=== PATIENT | female | born 1985 | race Caucasian/White ===

== ENCOUNTER 2017-05-21 18:48 | Inpatient (IN) ==
[2017-05-21] MEDS ORDERED: ACETAMINOPHEN 325 MG TABLET PO ONE (19:29)
[2017-05-21 21:58] LABS: Basophils % 0.2 % (0.0-0.8); Hematocrit 29.9 VOL% (35.7-47.0); Hemoglobin 9.7 GM/DL (12.0-16.0); Immature Granulocytes % 0.7 %; Immature Granulocytes Absolute 0.09 #; Lymphocytes % 7.9 % (21.3-54.2); Mean Corpuscular HGB Conc 32.4 GM/DL (32-36); Mean Corpuscular Hemoglobin 26 PG (27-34); Mean Corpuscular Volume 79.3 FL (87-102); Mean Platelet Volume 10.8 FL (9.6-12.0); Monocytes # 1.3 10*3/uL (0.11-0.8); Neutrophils # 10.2 10*3/uL (1.4-7.4); Neutrophils % 81.2 % (38.7-73.9); Platelet Count 518 T/CUMM (130-400); Red Blood Count 3.77 MC/CUMM (3.8-5.5); Red Cell Distribution Width 15.9 % (9.3-17.3); White Blood Count 12.6 T/CUMM (4-12)
[2017-05-21] MEDS ORDERED: HYDROmorphone 2 MG/1 ML VIAL IV STA (22:01)
[2017-05-21] MEDS ORDERED: ALUM/MAG/SIMETH/LIDO VISC 1:1 30 ML BOTTLE PO STA (22:01)
[2017-05-21] MEDS ORDERED: SODIUM CHLORIDE 0.9% 1,000 ML IV STA (22:01)
[2017-05-21] MEDS ORDERED: PANTOPRAZOLE 40 MG VIAL IV STA (22:01)
[2017-05-21] MEDS ORDERED: ONDANSETRON 4 MG/2 ML VIAL IV STA (22:01)
[2017-05-21] MEDS ORDERED: ACETAMINOPHEN 500 MG TABLET PO STA (22:24)
[2017-05-21] MEDS ORDERED: PANTOPRAZOLE 40 MG VIAL IV ONE (22:26)
[2017-05-21] MEDS ORDERED: HYDROmorphone 2 MG/1 ML VIAL ONE (22:26)
[2017-05-21] MEDS ORDERED: ALUM/MAG/SIMETH/LIDO VISC 1:1 30 ML BOTTLE PO ONE (22:26)
[2017-05-21] MEDS ORDERED: ONDANSETRON 4 MG/2 ML VIAL ONE (22:26)
[2017-05-21] MEDS ORDERED: ACETAMINOPHEN 500 MG TABLET ONE (22:26)
[2017-05-21 22:28] LABS: INR 10.9; PT Patient Result 105.1 SECS
[2017-05-21 22:35] LABS: Alanine Aminotransferase 16 U/L (13-56); Alkaline Phosphatase 96 U/L (45-117); Amylase 44 U/L (25-115); Aspartate Amino Transferase 21 U/L (0-37); Blood Urea Nitrogen 6 MG/DL (7-18); Glucose 87 MG/DL (74-106); Osmolality,Calculated 273.5 MOS/KG (273-304); Potassium 3.4 MMOL/L (3.5-5.1); Sodium 139 MMOL/L (136-145); Total Protein 7.2 G/DL (6.4-8.3); Troponin I Only < 0.015 NG/ML (0.00-0.045)
[2017-05-21 22:36] LABS: Apearance,Urine CLOUDY (Clear); Bacteria,Urine Occasional /HPF (Few); Bilirubin,Urine Negative (Negative); Blood, Urine Large mg/dL (Negative); Glucose,Urine (UA) Negative (Negative); Hyaline Casts,Urine 1 /LPF (0-3); Ketones,Urine Negative (Negative); Mucus,Urine Occasional /LPF (Occasional); Nitrite,Urine Negative (Negative); Protein,Urine 30 MG/DL; RBC,Urine 1 /HPF (0-4); Squamous Epithelial Cell,Urine Moderate /HPF (0-10); Urine Color Yellow (Yellow); Urine Specific Gravity 1.024 (1.001-1.035); WBC,Urine 4 /HPF (0-6)
[2017-05-21 22:43] LABS: Lactic Acid 1.5 MMOL/L (0.4-2.0)
[2017-05-22] MEDS ORDERED: ONDANSETRON 4 MG/2 ML VIAL IV STA (01:00)
[2017-05-22] MEDS ORDERED: HYDROmorphone 2 MG/1 ML VIAL IV STA (01:00)
[2017-05-22] MEDS ORDERED: HYDROmorphone 2 MG/1 ML VIAL ONE (01:03)
[2017-05-22] MEDS ORDERED: ONDANSETRON 4 MG/2 ML VIAL ONE (01:03)
[2017-05-22] MEDS ORDERED: PIPERACILLIN/TAZOBACTAM 3,375 MG in SODIUM CHLORIDE 0.9% 100 ML IV STA (01:32)
[2017-05-22] MEDS ORDERED: PIPERACILLIN/TAZOBACTAM 3,375 MG VIAL IV ONE (01:38)
[2017-05-22] MEDS ORDERED: SODIUM CHLORIDE 0.9% 100 ML IV ONE (01:38)
[2017-05-22] MEDS ORDERED: PHYTONADIONE 5 MG TABLET PO ONE (01:58)
[2017-05-22] MEDS ORDERED: MAGNESIUM HYDROXIDE SUSP 30 ML UDCUP PO PRN (02:49)
[2017-05-22] MEDS ORDERED: BISACODYL 10 MG SUPP RECTAL ONE (02:49)
[2017-05-22] MEDS ORDERED: ALBUTEROL/IPRATROPIUM 3 ML NEB RESP TX PRN (02:49)
[2017-05-22] MEDS ORDERED: ACETAMINOPHEN 325 MG TABLET PO PRN ×2 (02:49→09:29)
[2017-05-22] MEDS ORDERED: LACTATED RINGERS 1,000 ML IV SCH (02:49)
[2017-05-22] MEDS: SODIUM CHLORIDE 0.9% 1,000 ML IV SCH (03:33)
[2017-05-22] MEDS: HYDROmorphone 2 MG/1 ML VIAL IV PRN ×4 (03:33→20:52)
[2017-05-22] MEDS: PIPERACILLIN/TAZOBACTAM 3,375 MG in SODIUM CHLORIDE 0.9% 100 ML IV SCH ×3 (04:36→17:12)
[2017-05-22 06:45] LABS: Basophils % 0.2 % (0.0-0.8); Hematocrit 25.2 VOL% (35.7-47.0); Hemoglobin 8.1 GM/DL (12.0-16.0); Immature Granulocytes % 0.6 %; Immature Granulocytes Absolute 0.06 #; Lymphocytes % 10.7 % (21.3-54.2); Mean Corpuscular HGB Conc 32.1 GM/DL (32-36); Mean Corpuscular Hemoglobin 25 PG (27-34); Mean Platelet Volume 11.3 FL (9.6-12.0); Monocytes # 1.2 10*3/uL (0.11-0.8); Monocytes % 12.3 % (1.7-12.7); Neutrophils # 7.2 10*3/uL (1.4-7.4); Neutrophils % 76.2 % (38.7-73.9); Platelet Count 452 T/CUMM (130-400); Red Blood Count 3.19 MC/CUMM (3.8-5.5); White Blood Count 9.4 T/CUMM (4-12)
[2017-05-22 07:14] LABS: PT Patient Result 95.9 SECS
[2017-05-22 07:16] LABS: INR 9.9
[2017-05-22 07:29] LABS: Albumin 2.5 G/DL (3.4-5.0); Bilirubin,Total 0.5 MG/DL (0.2-1.0); Calcium 7.6 MG/DL (8.5-10.1); Osmolality,Calculated 274.4 MOS/KG (273-304); Potassium 3.3 MMOL/L (3.5-5.1); Total Protein 6.1 G/DL (6.4-8.3)
[2017-05-22] MEDS: ONDANSETRON 4 MG/2 ML VIAL IV PRN ×2 (07:52→13:32)
[2017-05-22] MEDS ORDERED: CETIRIZINE HCL 10 MG PO SCH (09:00)
[2017-05-22] MEDS ORDERED: DOCUSATE SODIUM 100 MG CAPSULE PO SCH (09:00)
[2017-05-22] MEDS ORDERED: PANTOPRAZOLE 40 MG VIAL IV SCH (09:00)
[2017-05-22] MEDS ORDERED: AZATHIOPRINE 50 MG PO SCH (09:00)
[2017-05-22] MEDS: IBUPROFEN 800 MG TABLET PO PRN (09:20)
[2017-05-22] MEDS ORDERED: SODIUM CHLORIDE 0.9% 1,000 ML IV PRN (09:26)
[2017-05-22] MEDS: CETIRIZINE 10 MG TABLET PO SCH (11:22)
[2017-05-22] MEDS: levETIRAcetam 500 MG TABLET PO SCH ×2 (11:22→20:50)
[2017-05-22] MEDS: VERAPAMIL 120 MG TABLET PO SCH (11:22)
[2017-05-22] MEDS: cloNIDine 0.1 MG TABLET PO SCH ×3 (11:22→20:49)
[2017-05-22] MEDS: predniSONE 20 MG TABLET PO SCH (11:22)
[2017-05-22] MEDS: METOPROLOL SUCCINATE XL 100 MG TABLET PO SCH ×2 (11:23→20:50)
[2017-05-22] MEDS: azaTHIOprine 50 MG TABLET PO SCH ×2 (11:23→20:50)
[2017-05-22] MEDS: DOCUSATE SODIUM 100 MG CAPSULE PO SCH ×2 (11:23→20:50)
[2017-05-22] MEDS: DULoxetine 30 MG CAPSULE PO SCH (11:23)
[2017-05-22] MEDS: PANTOPRAZOLE 40 MG TABLET PO SCH (11:23)
[2017-05-22] MEDS: PROMETHAZINE 25 MG/1 ML VIAL IM PRN ×2 (13:57→20:56)
[2017-05-22] MEDS ORDERED: POTASSIUM CHLORIDE 20 MEQ TABLET PO ONE (14:47)
[2017-05-22 16:20] LABS: Basophils % 0.1 % (0.0-0.8); Hematocrit 25.7 VOL% (35.7-47.0); Hemoglobin 8.3 GM/DL (12.0-16.0); Immature Granulocytes % 0.8 %; Immature Granulocytes Absolute 0.12 #; Lymphocytes # 0.4 10*3/uL (1.4-4.0); Lymphocytes % 2.8 % (21.3-54.2); Mean Corpuscular HGB Conc 32.3 GM/DL (32-36); Mean Corpuscular Hemoglobin 26 PG (27-34); Mean Corpuscular Volume 79.3 FL (87-102); Monocytes # 0.7 10*3/uL (0.11-0.8); Monocytes % 4.7 % (1.7-12.7); Neutrophils # 13.7 10*3/uL (1.4-7.4); Neutrophils % 91.6 % (38.7-73.9); Platelet Count 438 T/CUMM (130-400); Red Blood Count 3.24 MC/CUMM (3.8-5.5); Red Cell Distribution Width 15.9 % (9.3-17.3); White Blood Count 14.9 T/CUMM (4-12)
[2017-05-22 16:41] LABS: INR 2.1
[2017-05-22 16:48] LABS: PT Patient Result 21.5 SECS
[2017-05-22 17:30] LABS: Lymphocytes 3 % (20-55); Segmented Neutrophils 97 % (50-85); Total Cells Counted 100
[2017-05-22 17:31] LABS: Hypochromasia Slight; Platelet Estimate Adequate; Polychromasia Few
[2017-05-22] MEDS: ZALEPLON 5 MG CAPSULE PO SCH (20:50)
[2017-05-23] MEDS: SODIUM CHLORIDE 0.9% 1,000 ML IV SCH ×3 (00:41→16:31)
[2017-05-23] MEDS: HYDROmorphone 2 MG/1 ML VIAL IV PRN ×4 (00:42→21:08)
[2017-05-23] MEDS: PROMETHAZINE 25 MG/1 ML VIAL IM PRN (00:42)
[2017-05-23] MEDS: PIPERACILLIN/TAZOBACTAM 3,375 MG in SODIUM CHLORIDE 0.9% 100 ML IV SCH ×3 (00:48→19:28)
[2017-05-23] MEDS: IBUPROFEN 800 MG TABLET PO PRN (03:12)
[2017-05-23 06:25] LABS: Basophils % 0.2 % (0.0-0.8); Hematocrit 23.2 VOL% (35.7-47.0); Hemoglobin 7.5 GM/DL (12.0-16.0); Immature Granulocytes % 0.7 %; Immature Granulocytes Absolute 0.09 #; Lymphocytes % 7.9 % (21.3-54.2); Mean Corpuscular HGB Conc 32.3 GM/DL (32-36); Mean Corpuscular Hemoglobin 26 PG (27-34); Mean Corpuscular Volume 78.9 FL (87-102); Mean Platelet Volume 10.5 FL (9.6-12.0); Monocytes # 1.2 10*3/uL (0.11-0.8); Monocytes % 9.2 % (1.7-12.7); Neutrophils # 10.8 10*3/uL (1.4-7.4); Platelet Count 398 T/CUMM (130-400); Red Blood Count 2.94 MC/CUMM (3.8-5.5); Red Cell Distribution Width 15.9 % (9.3-17.3); White Blood Count 13.1 T/CUMM (4-12)
[2017-05-23 06:36] LABS: INR 2.1
[2017-05-23 06:50] LABS: PT Patient Result 21.9 SECS
[2017-05-23] MEDS ORDERED: SODIUM CHLORIDE 0.9% 1,000 ML IV PRN (08:45)
[2017-05-23] MEDS ORDERED: PHYTONADIONE 5 MG TABLET PO ONE ×2 (09:28→10:48)
[2017-05-23] MEDS: CETIRIZINE 10 MG TABLET PO SCH (10:55)
[2017-05-23] MEDS: DOCUSATE SODIUM 100 MG CAPSULE PO SCH ×2 (10:55→21:12)
[2017-05-23] MEDS: VERAPAMIL 120 MG TABLET PO SCH (10:55)
[2017-05-23] MEDS: cloNIDine 0.1 MG TABLET PO SCH ×3 (10:55→21:13)
[2017-05-23] MEDS: azaTHIOprine 50 MG TABLET PO SCH ×2 (10:55→21:12)
[2017-05-23] MEDS: levETIRAcetam 500 MG TABLET PO SCH ×2 (10:55→21:12)
[2017-05-23] MEDS: predniSONE 20 MG TABLET PO SCH (10:55)
[2017-05-23] MEDS: DULoxetine 30 MG CAPSULE PO SCH (10:56)
[2017-05-23] MEDS: METOPROLOL SUCCINATE XL 100 MG TABLET PO SCH ×2 (10:56→21:12)
[2017-05-23] MEDS: PANTOPRAZOLE 40 MG TABLET PO SCH (10:56)
[2017-05-23] MEDS ORDERED: MAGNESIUM CITRATE 300 ML BOTTLE PO ONE (18:00)
[2017-05-23 19:55] LABS: Hematocrit 31.4 VOL% (35.7-47.0)
[2017-05-23 19:59] LABS: Hemoglobin 10.1 GM/DL (12.0-16.0)
[2017-05-23] MEDS: ZALEPLON 5 MG CAPSULE PO SCH (21:12)
[2017-05-23] MEDS: ALVIMOPAN 12 MG CAPSULE PO SCH (21:12)
[2017-05-23] MEDS: POTASSIUM CHLORIDE 20 MEQ TABLET PO SCH (21:16)
[2017-05-24] MEDS: HYDROmorphone 2 MG/1 ML VIAL IV PRN ×7 (00:11→21:50)
[2017-05-24] MEDS: PROMETHAZINE 25 MG/1 ML VIAL IM PRN (01:01)
[2017-05-24] MEDS: SODIUM CHLORIDE 0.9% 1,000 ML IV SCH ×2 (01:06→21:02)
[2017-05-24] MEDS: PIPERACILLIN/TAZOBACTAM 3,375 MG in SODIUM CHLORIDE 0.9% 100 ML IV SCH ×3 (03:14→22:40)
[2017-05-24 07:18] LABS: Basophils % 0.2 % (0.0-0.8); Eosinophils % 0.1 % (0.00-10.9); Hematocrit 30.3 VOL% (35.7-47.0); Immature Granulocytes % 1.4 %; Lymphocytes # 1.2 10*3/uL (1.4-4.0); Lymphocytes % 8.4 % (21.3-54.2); Mean Corpuscular Hemoglobin 26 PG (27-34); Mean Corpuscular Volume 79.7 FL (87-102); Mean Platelet Volume 10.7 FL (9.6-12.0); Monocytes # 1.1 10*3/uL (0.11-0.8); Monocytes % 7.6 % (1.7-12.7); NRBC # 0.03 10*3/uL; Neutrophils # 12.2 10*3/uL (1.4-7.4); Neutrophils % 82.3 % (38.7-73.9); Platelet Count 477 T/CUMM (130-400); Red Cell Distribution Width 16.2 % (9.3-17.3); White Blood Count 14.8 T/CUMM (4-12)
[2017-05-24 07:24] LABS: INR 1.3; PT Patient Result 13.4 SECS
[2017-05-24 07:25] LABS: INR 1.3; PT Patient Result 13.3 SECS
[2017-05-24 07:31] LABS: Partial Thromboplastin Time 40.5 SECS (0-40)
[2017-05-24 07:56] LABS: Albumin 2.8 G/DL (3.4-5.0); Bilirubin,Total 0.8 MG/DL (0.2-1.0); Calcium 8.2 MG/DL (8.5-10.1); Potassium 3.6 MMOL/L (3.5-5.1); Total Protein 7.1 G/DL (6.4-8.3)
[2017-05-24] MEDS: levETIRAcetam 500 MG TABLET PO SCH ×2 (08:50→21:00)
[2017-05-24] MEDS: cloNIDine 0.1 MG TABLET PO SCH ×3 (08:50→21:00)
[2017-05-24] MEDS ORDERED: PANTOPRAZOLE 40 MG TABLET PO ONE (08:50)
[2017-05-24] MEDS: VERAPAMIL 120 MG TABLET PO SCH (08:50)
[2017-05-24] MEDS: PANTOPRAZOLE 40 MG TABLET PO SCH (08:51)
[2017-05-24] MEDS: METOPROLOL SUCCINATE XL 100 MG TABLET PO SCH ×2 (08:51→21:00)
[2017-05-24] MEDS ORDERED: HEPARIN 5,000 UNIT/1 ML VIAL SUBCUT ONE (10:21)
[2017-05-24] MEDS: predniSONE 20 MG TABLET PO SCH (10:42)
[2017-05-24] MEDS: CETIRIZINE 10 MG TABLET PO SCH (10:42)
[2017-05-24] MEDS: POTASSIUM CHLORIDE 20 MEQ TABLET PO SCH ×2 (10:42→21:00)
[2017-05-24] MEDS: DULoxetine 30 MG CAPSULE PO SCH (10:43)
[2017-05-24] MEDS: DOCUSATE SODIUM 100 MG CAPSULE PO SCH ×2 (10:43→21:00)
[2017-05-24] MEDS: ALVIMOPAN 12 MG CAPSULE PO SCH ×2 (10:43→21:00)
[2017-05-24] MEDS: azaTHIOprine 50 MG TABLET PO SCH ×2 (10:43→21:00)
[2017-05-24] MEDS ORDERED: HEPARIN 5,000 UNIT/1 ML VIAL ONE (12:36)
[2017-05-24] MEDS ORDERED: TISSUE ADHESIVE 1 EACH APPLICATOR TOP ONE (12:51)
[2017-05-24] MEDS: LACTATED RINGERS 1,000 ML IV SCH ×3 (13:25→21:07)
[2017-05-24] MEDS ORDERED: FLUORESCEIN 500 MG/5 ML VIAL IV ONE (16:48)
[2017-05-24 17:55] LABS: Apearance,Urine CLEAR (Clear); Bilirubin,Urine Negative (Negative); Blood, Urine Negative (Negative); Glucose,Urine (UA) Negative (Negative); Ketones,Urine Negative (Negative); Nitrite,Urine Negative (Negative); Protein,Urine Negative; Urine Color Straw (Yellow); Urine Specific Gravity 1.006 (1.001-1.035); Urine Urobilinogen < 2.0 EU/DL (0.2-1.0)
[2017-05-24] MEDS ORDERED: ONDANSETRON 4 MG/2 ML VIAL IV PRN (18:04)
[2017-05-24] MEDS ORDERED: LABETALOL 20 MG/4 ML SYRINGE IV ONE ×2 (18:43→18:50)
[2017-05-24] MEDS ORDERED: hydrALAZINE 20 MG/1 ML VIAL ONE (19:08)
[2017-05-24] MEDS ORDERED: hydrALAZINE 20 MG/1 ML VIAL IV ONE ×2 (19:11→19:34)
[2017-05-24] MEDS ORDERED: PROPOFOL 200 MG/20 ML VIAL IV ONE (20:05)
[2017-05-24] MEDS ORDERED: HYDROmorphone 2 MG/1 ML VIAL ONE (20:05)
[2017-05-24] MEDS ORDERED: SEVOFLURANE 1 UNIT/15 MINUTE INH ONE (20:05)
[2017-05-24] MEDS ORDERED: KETOROLAC 30 MG/1 ML VIAL ONE (20:06)
[2017-05-24] MEDS ORDERED: ONDANSETRON 4 MG/2 ML VIAL ONE (20:06)
[2017-05-24] MEDS ORDERED: GLYCOPYRROLATE 0.4 MG/2 ML VIAL ONE (20:06)
[2017-05-24] MEDS ORDERED: fentaNYL 100 MCG/2 ML VIAL ONE (20:06)
[2017-05-24] MEDS ORDERED: MIDAZOLAM 2 MG/2 ML VIAL ONE (20:06)
[2017-05-24] MEDS ORDERED: methylPREDNISolone SOD SUC 125 MG/2 ML VIAL ONE (20:06)
[2017-05-24] MEDS ORDERED: ACETAMINOPHEN 1,000 MG/100 ML VIAL IV ONE (20:06)
[2017-05-24] MEDS ORDERED: ROCURONIUM 100 MG/10 ML VIAL IV ONE (20:07)
[2017-05-24] MEDS: MEPERIDINE 50 MG/1 ML VIAL IM PRN (20:54)
[2017-05-24 21:48] LABS: Basophils % 0.1 % (0.0-0.8); Hematocrit 30.2 VOL% (35.7-47.0); Immature Granulocytes % 1.1 %; Immature Granulocytes Absolute 0.19 #; Lymphocytes # 0.4 10*3/uL (1.4-4.0); Lymphocytes % 2.6 % (21.3-54.2); Mean Corpuscular HGB Conc 33.1 GM/DL (32-36); Mean Corpuscular Hemoglobin 26 PG (27-34); Mean Corpuscular Volume 79.7 FL (87-102); Mean Platelet Volume 10.6 FL (9.6-12.0); Monocytes # 0.7 10*3/uL (0.11-0.8); Monocytes % 3.9 % (1.7-12.7); Neutrophils # 15.5 10*3/uL (1.4-7.4); Neutrophils % 92.3 % (38.7-73.9); Platelet Count 523 T/CUMM (130-400); Red Blood Count 3.79 MC/CUMM (3.8-5.5); Red Cell Distribution Width 16.6 % (9.3-17.3); White Blood Count 16.8 T/CUMM (4-12)
[2017-05-24 22:11] LABS: Lymphocytes 2 % (20-55); Platelet Estimate Increased; Segmented Neutrophils 95 % (50-85); Total Cells Counted 100
[2017-05-24] MEDS: ZALEPLON 5 MG CAPSULE PO SCH (22:43)
[2017-05-25] MEDS: MEPERIDINE 50 MG/1 ML VIAL IM PRN ×3 (01:09→09:28)
[2017-05-25] MEDS: PROMETHAZINE 25 MG/1 ML VIAL IM PRN ×2 (01:10→05:28)
[2017-05-25] MEDS ORDERED: ENOXAPARIN 40 MG/0.4 ML SYRINGE SUBCUT SCH (05:00)
[2017-05-25] MEDS: SODIUM CHLORIDE 0.9% 1,000 ML IV SCH ×3 (05:25→21:21)
[2017-05-25 05:45] LABS: Calcium 7.9 MG/DL (8.5-10.1); Osmolality,Calculated 275.4 MOS/KG (273-304); Potassium 3.9 MMOL/L (3.5-5.1)
[2017-05-25] MEDS: levETIRAcetam 500 MG TABLET PO SCH ×2 (09:20→21:24)
[2017-05-25] MEDS: POTASSIUM CHLORIDE 20 MEQ TABLET PO SCH ×2 (09:20→21:22)
[2017-05-25] MEDS: VERAPAMIL 120 MG TABLET PO SCH (09:20)
[2017-05-25] MEDS: CETIRIZINE 10 MG TABLET PO SCH (09:20)
[2017-05-25] MEDS: PANTOPRAZOLE 40 MG TABLET PO SCH (09:20)
[2017-05-25] MEDS: METOPROLOL SUCCINATE XL 100 MG TABLET PO SCH ×2 (09:20→21:22)
[2017-05-25] MEDS: DOCUSATE SODIUM 100 MG CAPSULE PO SCH ×2 (09:20→21:23)
[2017-05-25] MEDS: ALVIMOPAN 12 MG CAPSULE PO SCH ×2 (09:20→21:23)
[2017-05-25] MEDS: predniSONE 20 MG TABLET PO SCH (09:20)
[2017-05-25] MEDS: cloNIDine 0.1 MG TABLET PO SCH ×3 (09:20→21:22)
[2017-05-25] MEDS: azaTHIOprine 50 MG TABLET PO SCH ×2 (09:20→21:23)
[2017-05-25] MEDS: DULoxetine 30 MG CAPSULE PO SCH (09:21)
[2017-05-25] MEDS: HYDROmorphone 2 MG/1 ML VIAL IV PRN (09:39)
[2017-05-25] MEDS: PIPERACILLIN/TAZOBACTAM 3,375 MG in SODIUM CHLORIDE 0.9% 100 ML IV SCH ×2 (10:16→19:10)
[2017-05-25] MEDS: ENOXAPARIN 30 MG/0.3 ML SYRINGE SUBCUT SCH (12:49)
[2017-05-25 12:51] LABS: PT Patient Result 10.7 SECS
[2017-05-25 17:37] LABS: Apearance,Urine CLOUDY (Clear); Bilirubin,Urine Negative (Negative); Blood, Urine Negative (Negative); Glucose,Urine (UA) Negative (Negative); Ketones,Urine Negative (Negative); Nitrite,Urine Negative (Negative); Protein,Urine Negative; RBC,Urine 1 /HPF (0-4); Squamous Epithelial Cell,Urine Occasional /HPF (0-10); Urine Specific Gravity 1.008 (1.001-1.035); Urine Urobilinogen < 2.0 EU/DL (0.2-1.0); WBC,Urine 2 /HPF (0-6)
[2017-05-25 17:38] LABS: Urine Color Yellow (Yellow)
[2017-05-25] MEDS: VANCOMYCIN INJ 1,500 MG in SODIUM CHLORIDE 0.9% 500 ML IV SCH (19:10)
[2017-05-25] MEDS: WARFARIN 7.5 MG TABLET PO SCH (19:10)
[2017-05-25] MEDS: ZALEPLON 5 MG CAPSULE PO SCH (21:22)
[2017-05-25] MEDS: oxyCODONE/ACETAMINOPHEN 5-325 MG TABLET PO PRN (21:23)
[2017-05-26] MEDS: oxyCODONE/ACETAMINOPHEN 5-325 MG TABLET PO PRN ×2 (02:07→20:41)
[2017-05-26] MEDS: ENOXAPARIN 30 MG/0.3 ML SYRINGE SUBCUT SCH ×3 (02:07→23:43)
[2017-05-26] MEDS: PIPERACILLIN/TAZOBACTAM 3,375 MG in SODIUM CHLORIDE 0.9% 100 ML IV SCH ×3 (05:11→20:38)
[2017-05-26 05:18] LABS: Calcium 7.7 MG/DL (8.5-10.1)
[2017-05-26 05:19] LABS: Osmolality,Calculated 279.1 MOS/KG (273-304); Potassium 3.8 MMOL/L (3.5-5.1)
[2017-05-26] MEDS: cloNIDine 0.1 MG TABLET PO SCH ×3 (09:30→20:40)
[2017-05-26] MEDS: POTASSIUM CHLORIDE 20 MEQ TABLET PO SCH ×2 (09:30→20:40)
[2017-05-26] MEDS: ALVIMOPAN 12 MG CAPSULE PO SCH ×2 (09:30→20:40)
[2017-05-26] MEDS: levETIRAcetam 500 MG TABLET PO SCH ×2 (09:30→20:42)
[2017-05-26] MEDS: VERAPAMIL 120 MG TABLET PO SCH (09:30)
[2017-05-26] MEDS: predniSONE 20 MG TABLET PO SCH (09:30)
[2017-05-26] MEDS: DULoxetine 30 MG CAPSULE PO SCH ×2 (09:30→09:32)
[2017-05-26] MEDS: PANTOPRAZOLE 40 MG TABLET PO SCH (09:30)
[2017-05-26] MEDS: CETIRIZINE 10 MG TABLET PO SCH (09:30)
[2017-05-26] MEDS: azaTHIOprine 50 MG TABLET PO SCH ×2 (09:30→20:43)
[2017-05-26] MEDS: METOPROLOL SUCCINATE XL 100 MG TABLET PO SCH ×2 (09:30→20:41)
[2017-05-26] MEDS: DOCUSATE SODIUM 100 MG CAPSULE PO SCH ×2 (09:30→20:42)
[2017-05-26] MEDS: VANCOMYCIN INJ 1,500 MG in SODIUM CHLORIDE 0.9% 500 ML IV SCH (09:30)
[2017-05-26 13:31] LABS: Basophils % 0.3 % (0.0-0.8); Eosinophils % 0.1 % (0.00-10.9); Hematocrit 28.6 VOL% (35.7-47.0); Hemoglobin 9.3 GM/DL (12.0-16.0); Immature Granulocytes % 3.1 %; Immature Granulocytes Absolute 0.33 #; Lymphocytes % 9.1 % (21.3-54.2); Mean Corpuscular HGB Conc 32.5 GM/DL (32-36); Mean Corpuscular Hemoglobin 27 PG (27-34); Mean Corpuscular Volume 81.7 FL (87-102); Mean Platelet Volume 10.8 FL (9.6-12.0); Monocytes # 0.8 10*3/uL (0.11-0.8); Monocytes % 7.9 % (1.7-12.7); NRBC # 0.04 10*3/uL; Neutrophils # 8.3 10*3/uL (1.4-7.4); Neutrophils % 79.5 % (38.7-73.9); Platelet Count 542 T/CUMM (130-400); Red Cell Distribution Width 16.9 % (9.3-17.3); White Blood Count 10.5 T/CUMM (4-12)
[2017-05-26] MEDS: hydrALAZINE 25 MG TABLET PO SCH ×2 (13:32→20:40)
[2017-05-26 13:41] LABS: INR 0.9
[2017-05-26] MEDS: WARFARIN 7.5 MG TABLET PO SCH (17:39)
[2017-05-26] MEDS: ZALEPLON 5 MG CAPSULE PO SCH (20:39)
[2017-05-26] MEDS: SODIUM CHLORIDE 0.9% 1,000 ML IV SCH (22:22)
[2017-05-27] MEDS: VANCOMYCIN INJ 1,500 MG in SODIUM CHLORIDE 0.9% 500 ML IV SCH ×2 (00:57→09:02)
[2017-05-27 02:33] LABS: Calcium 8.1 MG/DL (8.5-10.1); Osmolality,Calculated 278.3 MOS/KG (273-304); Potassium 3.9 MMOL/L (3.5-5.1)
[2017-05-27] MEDS: oxyCODONE/ACETAMINOPHEN 5-325 MG TABLET PO PRN ×3 (03:34→21:05)
[2017-05-27] MEDS: PIPERACILLIN/TAZOBACTAM 3,375 MG in SODIUM CHLORIDE 0.9% 100 ML IV SCH (03:35)
[2017-05-27] MEDS: predniSONE 20 MG TABLET PO SCH (09:03)
[2017-05-27] MEDS: hydrALAZINE 25 MG TABLET PO SCH ×2 (09:03→21:06)
[2017-05-27] MEDS: cloNIDine 0.1 MG TABLET PO SCH ×3 (09:04→21:06)
[2017-05-27] MEDS: DULoxetine 30 MG CAPSULE PO SCH (09:04)
[2017-05-27] MEDS: METOPROLOL SUCCINATE XL 100 MG TABLET PO SCH ×2 (09:04→21:05)
[2017-05-27] MEDS: ALVIMOPAN 12 MG CAPSULE PO SCH ×2 (09:04→21:05)
[2017-05-27] MEDS: VERAPAMIL 120 MG TABLET PO SCH (09:04)
[2017-05-27] MEDS: azaTHIOprine 50 MG TABLET PO SCH ×2 (09:04→21:05)
[2017-05-27] MEDS: CETIRIZINE 10 MG TABLET PO SCH (09:04)
[2017-05-27] MEDS: DOCUSATE SODIUM 100 MG CAPSULE PO SCH ×2 (09:04→21:07)
[2017-05-27] MEDS: PANTOPRAZOLE 40 MG TABLET PO SCH (09:04)
[2017-05-27] MEDS: levETIRAcetam 500 MG TABLET PO SCH ×2 (09:04→21:06)
[2017-05-27] MEDS: POTASSIUM CHLORIDE 20 MEQ TABLET PO SCH ×2 (09:04→21:06)
[2017-05-27] MEDS: ENOXAPARIN 30 MG/0.3 ML SYRINGE SUBCUT SCH ×2 (11:57→23:12)
[2017-05-27] MEDS: SODIUM CHLORIDE 0.9% 1,000 ML IV SCH (15:54)
[2017-05-27] MEDS: WARFARIN 7.5 MG TABLET PO SCH (17:02)
[2017-05-27] MEDS: ZALEPLON 5 MG CAPSULE PO SCH (21:05)
[2017-05-28] MEDS: oxyCODONE/ACETAMINOPHEN 5-325 MG TABLET PO PRN (05:20)
[2017-05-28] MEDS: hydrALAZINE 20 MG/1 ML VIAL IV PRN ×2 (05:20→11:11)
[2017-05-28 07:07] LABS: Basophils % 0.4 % (0.0-0.8); Eosinophils % 0.2 % (0.00-10.9); Hematocrit 31.5 VOL% (35.7-47.0); Immature Granulocytes % 5.5 %; Immature Granulocytes Absolute 0.59 #; Lymphocytes # 1.6 10*3/uL (1.4-4.0); Lymphocytes % 14.9 % (21.3-54.2); Mean Corpuscular HGB Conc 31.7 GM/DL (32-36); Mean Corpuscular Hemoglobin 26 PG (27-34); Mean Corpuscular Volume 82.9 FL (87-102); Mean Platelet Volume 10.7 FL (9.6-12.0); Monocytes # 0.8 10*3/uL (0.11-0.8); Monocytes % 7.7 % (1.7-12.7); NRBC # 0.07 10*3/uL; Neutrophils # 7.7 10*3/uL (1.4-7.4); Neutrophils % 71.3 % (38.7-73.9); Platelet Count 698 T/CUMM (130-400); Red Cell Distribution Width 17.1 % (9.3-17.3); White Blood Count 10.8 T/CUMM (4-12)
[2017-05-28 07:20] LABS: INR 1.3; PT Patient Result 13.5 SECS
[2017-05-28 07:40] LABS: Calcium 8.8 MG/DL (8.5-10.1); Osmolality,Calculated 277.3 MOS/KG (273-304); Potassium 3.5 MMOL/L (3.5-5.1)
[2017-05-28 07:43] LABS: Hypochromasia 1+; Lymphocytes 16 % (20-55); Microcytosis 1+; Myelocytes 1 %; Segmented Neutrophils 75 % (50-85); Total Cells Counted 100
[2017-05-28 07:44] LABS: Platelet Estimate Increased
[2017-05-28] MEDS: POTASSIUM CHLORIDE 20 MEQ TABLET PO SCH (09:19)
[2017-05-28] MEDS: levETIRAcetam 500 MG TABLET PO SCH (09:19)
[2017-05-28] MEDS: cloNIDine 0.1 MG TABLET PO SCH ×2 (09:19→14:23)
[2017-05-28] MEDS: predniSONE 20 MG TABLET PO SCH (09:19)
[2017-05-28] MEDS: CETIRIZINE 10 MG TABLET PO SCH (09:19)
[2017-05-28] MEDS: DULoxetine 30 MG CAPSULE PO SCH (09:20)
[2017-05-28] MEDS: VERAPAMIL 120 MG TABLET PO SCH (09:20)
[2017-05-28] MEDS: METOPROLOL SUCCINATE XL 100 MG TABLET PO SCH (09:20)
[2017-05-28] MEDS: azaTHIOprine 50 MG TABLET PO SCH (09:20)
[2017-05-28] MEDS: DOCUSATE SODIUM 100 MG CAPSULE PO SCH (09:20)
[2017-05-28] MEDS: hydrALAZINE 25 MG TABLET PO SCH (09:20)
[2017-05-28] MEDS: ALVIMOPAN 12 MG CAPSULE PO SCH (09:20)
[2017-05-28] MEDS: PANTOPRAZOLE 40 MG TABLET PO SCH (09:20)
[2017-05-28] MEDS: SODIUM CHLORIDE 0.9% 1,000 ML IV SCH (10:10)
[2017-05-28] MEDS: ENOXAPARIN 30 MG/0.3 ML SYRINGE SUBCUT SCH (11:12)
[2017-05-28 12:05] VITALS: BP 143/82
== END 2017-05-28 17:08 | disposition home or self-care (01) | DRG 982 ==
LOC: N.ED 18:48 → N.EDINP 05-22 01:58 → N.5E 05-22 02:45
PROVIDERS: ADMIT Obstetrics & Gynecology; ATTEND Obstetrics & Gynecology

== ENCOUNTER 2017-06-12 12:43 | Inpatient (IN) ==
[2017-06-12 16:44] LABS: Basophils % 0.4 % (0.0-0.8); Eosinophils % 0.1 % (0.00-10.9); Immature Granulocytes % 1.8 %; Immature Granulocytes Absolute 0.19 #; Lymphocytes # 2.1 10*3/uL (1.4-4.0); Lymphocytes % 19.7 % (21.3-54.2); Mean Corpuscular Hemoglobin 26 PG (27-34); Mean Corpuscular Volume 83.6 FL (87-102); Mean Platelet Volume 11.5 FL (9.6-12.0); Monocytes % 8.9 % (1.7-12.7); Neutrophils # 7.4 10*3/uL (1.4-7.4); Neutrophils % 69.1 % (38.7-73.9); Platelet Count 402 T/CUMM (130-400); Red Blood Count 3.47 MC/CUMM (3.8-5.5); Red Cell Distribution Width 17.2 % (9.3-17.3); White Blood Count 10.7 T/CUMM (4-12)
[2017-06-12 17:07] LABS: PT Patient Result 60.7 SECS; Partial Thromboplastin Time 63.7 SECS (0-40)
[2017-06-12 17:09] LABS: INR 6.1
[2017-06-12] MEDS ORDERED: ONDANSETRON 4 MG/2 ML VIAL IV PRN (17:35)
[2017-06-12] MEDS ORDERED: SODIUM CHLORIDE 0.9% 1,000 ML IV PRN (17:53)
[2017-06-12 17:56] LABS: Alanine Aminotransferase 38 U/L (13-56); Albumin 3.5 G/DL (3.4-5.0); Alkaline Phosphatase 142 U/L (45-117); Aspartate Amino Transferase 24 U/L (0-37); Bilirubin,Total < 0.39 MG/DL (0.2-1.0); Blood Urea Nitrogen 18 MG/DL (7-18); Calcium 8.6 MG/DL (8.5-10.1); Glucose 97 MG/DL (74-106); Osmolality,Calculated 278.5 MOS/KG (273-304); Potassium 3.5 MMOL/L (3.5-5.1); Sodium 139 MMOL/L (136-145); Total Protein 7.5 G/DL (6.4-8.3)
[2017-06-12] MEDS: oxyCODONE/ACETAMINOPHEN 5-325 MG TABLET PO PRN (22:10)
[2017-06-12] MEDS: levETIRAcetam 500 MG TABLET PO SCH (22:16)
[2017-06-12] MEDS: METOPROLOL SUCCINATE XL 100 MG TABLET PO SCH (22:17)
[2017-06-12] MEDS: azaTHIOprine 50 MG TABLET PO SCH (22:17)
[2017-06-12] MEDS: DOCUSATE SODIUM 100 MG CAPSULE PO SCH (22:17)
[2017-06-12] MEDS: ZALEPLON 5 MG CAPSULE PO SCH (22:17)
[2017-06-12] MEDS: cloNIDine 0.1 MG TABLET PO SCH (22:17)
[2017-06-12] MEDS: ALVIMOPAN 12 MG CAPSULE PO SCH (22:18)
[2017-06-13 01:30] LABS: Hematocrit 24.4 VOL% (35.7-47.0); Hemoglobin 7.8 GM/DL (12.0-16.0)
[2017-06-13 01:49] LABS: INR 2.8
[2017-06-13 01:56] LABS: Osmolality,Calculated 281.7 MOS/KG (273-304)
[2017-06-13 02:00] LABS: PT Patient Result 28.6 SECS
[2017-06-13 06:32] LABS: Hematocrit 20.1 VOL% (35.7-47.0)
[2017-06-13 07:36] LABS: Hemoglobin 6.5 GM/DL (12.0-16.0)
[2017-06-13] MEDS: VERAPAMIL 120 MG TABLET PO SCH (08:13)
[2017-06-13] MEDS: cloNIDine 0.1 MG TABLET PO SCH ×3 (08:14→20:24)
[2017-06-13] MEDS: METOPROLOL SUCCINATE XL 100 MG TABLET PO SCH ×2 (08:16→20:23)
[2017-06-13] MEDS: DULoxetine 30 MG CAPSULE PO SCH (09:22)
[2017-06-13] MEDS: levETIRAcetam 500 MG TABLET PO SCH ×2 (09:22→20:24)
[2017-06-13] MEDS: PANTOPRAZOLE 40 MG TABLET PO SCH (09:22)
[2017-06-13] MEDS: azaTHIOprine 50 MG TABLET PO SCH ×2 (09:22→20:25)
[2017-06-13] MEDS: DOCUSATE SODIUM 100 MG CAPSULE PO SCH ×2 (09:22→20:24)
[2017-06-13] MEDS: CETIRIZINE 10 MG TABLET PO SCH (09:22)
[2017-06-13] MEDS: predniSONE 20 MG TABLET PO SCH (09:22)
[2017-06-13] MEDS: ALVIMOPAN 12 MG CAPSULE PO SCH ×2 (09:23→20:24)
[2017-06-13] MEDS ORDERED: POTASSIUM CHLORIDE 20 MEQ TABLET PO ONE ×2 (10:00→12:00)
[2017-06-13] MEDS ORDERED: SODIUM CHLORIDE 0.9% 1,000 ML IV PRN (10:47)
[2017-06-13] MEDS ORDERED: ACETAMINOPHEN 325 MG TABLET PO PRN (10:52)
[2017-06-13 11:11] LABS: Hematocrit 20.3 VOL% (35.7-47.0); Hemoglobin 6.6 GM/DL (12.0-16.0)
[2017-06-13] MEDS ORDERED: traMADol 50 MG TABLET PO PRN (11:26)
[2017-06-13 22:14] LABS: Hematocrit 28.1 VOL% (35.7-47.0); Hemoglobin 8.9 GM/DL (12.0-16.0)
[2017-06-13] MEDS: ZALEPLON 5 MG CAPSULE PO SCH (22:45)
[2017-06-14] MEDS: oxyCODONE/ACETAMINOPHEN 5-325 MG TABLET PO PRN (05:43)
[2017-06-14 06:28] LABS: Calcium 8.4 MG/DL (8.5-10.1)
[2017-06-14 08:47] LABS: INR 1.7
[2017-06-14] MEDS: CETIRIZINE 10 MG TABLET PO SCH (10:08)
[2017-06-14] MEDS: predniSONE 20 MG TABLET PO SCH (10:08)
[2017-06-14] MEDS: DULoxetine 30 MG CAPSULE PO SCH (10:08)
[2017-06-14] MEDS: DOCUSATE SODIUM 100 MG CAPSULE PO SCH (10:08)
[2017-06-14] MEDS: azaTHIOprine 50 MG TABLET PO SCH (10:08)
[2017-06-14] MEDS: levETIRAcetam 500 MG TABLET PO SCH (10:08)
[2017-06-14] MEDS: cloNIDine 0.1 MG TABLET PO SCH ×2 (10:09→16:52)
[2017-06-14] MEDS: ALVIMOPAN 12 MG CAPSULE PO SCH ×2 (10:09→10:36)
[2017-06-14] MEDS: METOPROLOL SUCCINATE XL 100 MG TABLET PO SCH (10:09)
[2017-06-14] MEDS: VERAPAMIL 120 MG TABLET PO SCH (10:09)
[2017-06-14] MEDS: PANTOPRAZOLE 40 MG TABLET PO SCH (10:09)
[2017-06-14 15:50] VITALS: BP 119/78
== END 2017-06-14 17:07 | disposition home or self-care (01) | DRG 760 ==
LOC: N.ED 12:43 → N.EDINP 17:35
PROVIDERS: ADMIT Internal Medicine Infectious Disease; ATTEND Internal Medicine Infectious Disease